=== PATIENT | male | born 1990 | race Asian ===

== ENCOUNTER 2017-09-03 03:30 | Inpatient (IN) | payer OTHER ==
[~2017-09-03] VITALS: Ht 167.6 cm; Wt 65.0 kg
[2017-09-03 03:37] VITALS: Ht 167.6 cm; Wt 65.0 kg
[2017-09-03 04:11] LABS: CARBON DIOXIDE 25.1 mmol/L (21-32); CHLORIDE SERUM 105 mmol/L (98-107); GFR1 > 60 mL/min; GLUCOSE SERUM 130 mg/dL (74-106); POTASSIUM SERUM 3.6 mmol/L (3.5-5.1); SODIUM SERUM 138 mmol/L (136-145)
[2017-09-03 04:19] LABS: BASOPHIL % 0.2 % (0-2); PLATELET COUNT 269 x10^3mcL (130-400)
[2017-09-03 05:17] VITALS: BP 115/72; BP 139/87
[2017-09-03 06:24] LABS: CHOLESTEROL/HDL RATIO 1.9; MAGNESIUM 2.1 mg/dL (1.8-2.4); PHOSPHOROUS 2.7 mg/dL (2.5-4.9)
[2017-09-03 06:31] LABS: T3 TOTAL 0.85 ng/mL
[2017-09-03 06:49] VITALS: BP 115/72
[2017-09-03 07:57] LABS: FREE T4 0.91 ng/dL (0.76-1.46); FREE THYROXINE INDEX 2.1 ug/dL (1.4-4.5); T4(THYROXINE) 6.1 ug/dL (4.7-13.3)
[2017-09-03 08:30] VITALS: BP 106/62
[2017-09-03 12:43] VITALS: BP 110/60
[2017-09-03 13:02] LABS: microscopic required? NO
[2017-09-03 13:30] LABS: urine erythrocyte NEGATIVE (NEGATIVE)
[2017-09-03 13:40] LABS: AMPHETAMINE QUAL UR NONE DETECTED (NEG <=1000)
[2017-09-03 17:15] VITALS: BP 104/6
[2017-09-03 20:24] VITALS: BP 117/63
[2017-09-04 06:07] VITALS: BP 111/71
[2017-09-04 08:29] VITALS: BP 111/75
[2017-09-04 09:11] LABS: CALCIUM 8.5 mg/dL (8.5-10.1); CARBON DIOXIDE 25.6 mmol/L (21-32); CHLORIDE SERUM 106 mmol/L (98-107); CREATININE SERUM 0.9 mg/dL (0.7-1.3); GFR1 > 60 mL/min; GLUCOSE SERUM 124 mg/dL (74-106); POTASSIUM SERUM 4.1 mmol/L (3.5-5.1); SODIUM SERUM 138 mmol/L (136-145)
[2017-09-04 09:25] LABS: BASOPHIL % 0.4 % (0-2); PLATELET COUNT 265 x10^3mcL (130-400); RED CELL DISTRIBUTION WIDTH 12.8 % (11.5-14.5)
[2017-09-04] MEDS ORDERED: LEVAQUIN750 MG PO (15:04)
[2017-09-04] MEDS ORDERED: LAC PO (15:05)
[2017-09-04] MEDS ORDERED: CLINDAMYCIN HC300 MG PO (15:05)
[2017-09-04 15:07] VITALS: BP 111/75
== END 2017-09-04 15:44 | disposition home or self-care (01) | DRG 872 ==
LOC: ED 03:30 → DU 04:39
PROVIDERS: Emergency Medicine; Family Medicine
PROC: 3E0234Z Introduction of Serum, Toxoid and Vaccine into Muscle, Percutaneous Approach (ICD-10-PCS; principal; 2017-09-03)
DX: A41.9 Sepsis, unspecified organism (principal); L03.113 Cellulitis of right upper limb; F17.290 Nicotine dependence, other tobacco product, uncomplicated; S61.451A Open bite of right hand, initial encounter; Z23 Encounter for immunization; W54.0XXA Bitten by dog, initial encounter; Y93.89 Activity, other specified; Y92.89 Other specified places as the place of occurrence of the external cause; Y99.8 Other external cause status
CPT/HCPCS: 83880; 84439; 90715; J0295; J1644; J1885; J1956; J3490; J7030; J7050; Q0092